=== PATIENT | female | born 1990 | race Hispanic/Latino ===

== ENCOUNTER 2018-04-23 01:55 | Emergency (ER) | payer OTHER ==
[2018-04-23] MEDS ORDERED: ONDANSETRON 4MG/2ML VIAL (J2405) As Ordered (02:12)
[2018-04-23] MEDS: ONDANSETRON 4MG/2ML VIAL (J2405) IV ×2 (02:15→04:40)
[2018-04-23 02:55] LABS: BASO # 0.1 10^3/uL (0.0-0.2); BASO % 0.7 % (0.0-1.0); EOS # 0.3 10^3/uL (0.0-0.50); EOS % 2.8 % (0.0-3.0); HEMATOCRIT 39.8 % (36.0-47.0); HEMOGLOBIN 13.4 g/dl (12.0-15.5); IMMATURE GRANULOCYTE % 0.4 % (0-3.0); LYMPH # 3.3 10^3/uL (1.5-6.5); LYMPH % 29.5 % (24.0-44.0); MEAN CORPUSCULAR HEMOGLOBIN 28.3 pg (27.0-33.0); MEAN CORPUSCULAR HGB CONC 33.7 g/dl (32.0-36.5); MONO # 1.1 10^3/uL (0.0-0.8); MONO % 9.5 % (0.0-5.0); NEUTROPHILS # 6.5 10^3/uL (1.8-7.7); NEUTROPHILS % 57.1 % (36.0-66.0); PLATELET COUNT, AUTOMATED 254 10^3/uL (150-450); RED BLOOD COUNT 4.74 10^6/uL (4.00-5.40); RED CELL DISTRIBUTION WIDTH 12.2 % (11.5-14.5); WHITE BLOOD COUNT 11.3 10^3/uL (4.0-10.0)
[2018-04-23 02:59] LABS: CONTROL LINE HCG INT CTR LINE PRESENT; HCG, SERUM QUALITATIVE NEGATIVE (NEGATIVE)
[2018-04-23 03:03] LABS: ANION GAP 16 MEQ/L (8-16); BLOOD UREA NITROGEN 7 MG/DL (7-18); CALCIUM LEVEL 8.9 MG/DL (8.5-10.1); CARBON DIOXIDE LEVEL 18 MEQ/L (21-32); CHLORIDE LEVEL 108 MEQ/L (98-107); CREATININE FOR GFR 0.85 MG/DL (0.55-1.30); ETHYL ALCOHOL (ETHANOL) 0.157 % (0.000-0.010); GLOMERULAR FILTRATION RATE > 60.0 (>60); GLUCOSE, FASTING 119 MG/DL (70-100); POTASSIUM SERUM 3.1 MEQ/L (3.5-5.1); SODIUM LEVEL 142 MEQ/L (136-145)
[2018-04-23] MEDS: NS 1,000 ML IV ×2 (03:13→07:40)
[2018-04-23] MEDS: METOCLOPRAMIDE INJ 10MG/2ML VIAL (J2765) IV ×2 (03:13→06:09)
[2018-04-23] MEDS ORDERED: ISOVUE-370 76% 100ML VIAL (Q9967) As Ordered (05:51)
[2018-04-23] MEDS: MORPHINE 4 MG/ML 1ML VIAL/SYRINGE (J2270) IV (06:10)
== END 2018-04-23 07:41 | disposition home or self-care (01) ==
LOC: M ED 01:55
DX: F10.229 Alcohol dependence with intoxication, unspecified (principal); Y90.0 Blood alcohol level of less than 20 mg/100 ml; Z87.19 Personal history of other diseases of the digestive system
CPT/HCPCS: J2270

== ENCOUNTER 2018-04-23 13:10 | Emergency (ER) | payer OTHER ==
[2018-04-23] MEDS: ONDANSETRON 4MG/2ML VIAL (J2405) IV (14:16)
[2018-04-23] MEDS: NS 1,000 ML IV (14:16)
[2018-04-23] MEDS: GI COCKTAIL 50ML BTL(HYOSCYAMINE/MAALOX/LIDOCAINE VISCOUS)(1:3:1) PO (14:17)
[2018-04-23 14:27] LABS: BASO # 0.1 10^3/uL (0.0-0.2); BASO % 0.3 % (0.0-1.0); EOS % 0.1 % (0.0-3.0); HEMATOCRIT 38.7 % (36.0-47.0); IMMATURE GRANULOCYTE % 0.5 % (0-3.0); LYMPH # 1.4 10^3/uL (1.5-6.5); MEAN CORPUSCULAR HEMOGLOBIN 28.3 pg (27.0-33.0); MEAN CORPUSCULAR HGB CONC 33.6 g/dl (32.0-36.5); MEAN CORPUSCULAR VOLUME 84.1 fl (80.0-96.0); MONO # 0.7 10^3/uL (0.0-0.8); MONO % 4.9 % (0.0-5.0); NEUTROPHILS # 12.7 10^3/uL (1.8-7.7); NEUTROPHILS % 85.2 % (36.0-66.0); PLATELET COUNT, AUTOMATED 212 10^3/uL (150-450); RED CELL DISTRIBUTION WIDTH 12.7 % (11.5-14.5)
[2018-04-23] MEDS: METOCLOPRAMIDE INJ 10MG/2ML VIAL (J2765) IV (14:56)
[2018-04-23] MEDS: KETOROLAC 30 MG/ML VIAL (J1885) IV (14:56)
[2018-04-23 15:02] LABS: ALBUMIN 3.9 GM/DL (3.2-5.2); ALBUMIN/GLOBULIN RATIO 0.98 (1.00-1.93); ALKALINE PHOSPHATASE 42 U/L (45-117); ALT/SGPT 16 U/L (12-78); ANION GAP 10 MEQ/L (8-16); AST/SGOT 14 U/L (7-37); BILIRUBIN,DIRECT 0.1 MG/DL (0.0-0.2); BILIRUBIN,TOTAL 0.8 MG/DL (0.2-1.0); BLOOD UREA NITROGEN 6 MG/DL (7-18); CALCIUM LEVEL 8.6 MG/DL (8.5-10.1); CARBON DIOXIDE LEVEL 23 MEQ/L (21-32); CHLORIDE LEVEL 108 MEQ/L (98-107); CREATININE FOR GFR 0.83 MG/DL (0.55-1.30); GLOMERULAR FILTRATION RATE > 60.0 (>60); GLUCOSE, FASTING 96 MG/DL (70-100); LIPASE 146 U/L (73-393); POTASSIUM SERUM 3.6 MEQ/L (3.5-5.1); SODIUM LEVEL 141 MEQ/L (136-145); TOTAL PROTEIN 7.9 GM/DL (6.4-8.2)
[2018-04-23 15:36] LABS: AMPHETAMINES LEVEL URINE NEGATIVE (NEGATIVE); BARBITURATES URINE NEGATIVE (NEGATIVE); BENZODIAZEPINES URINE NEGATIVE (NEGATIVE); CANNABINOIDS URINE POSITIVE (NEGATIVE); COCAINE METABOLITE URINE NEGATIVE (NEGATIVE); METHADONE URINE NEGATIVE (NEGATIVE); OPIATES URINE POSITIVE (NEGATIVE); PHENCYCLIDINE URINE NEGATIVE (NEGATIVE)
== END 2018-04-23 16:24 | disposition home or self-care (01) ==
LOC: M ED 13:10
DX: R11.2 Nausea with vomiting, unspecified (principal); K21.9 Gastro-esophageal reflux disease without esophagitis; F33.9 Major depressive disorder, recurrent, unspecified; Z87.19 Personal history of other diseases of the digestive system
CPT/HCPCS: J2405

== ENCOUNTER 2018-06-01 17:48 | Emergency (ER) | payer OTHER ==
[2018-06-01] MEDS: FLUCONAZOLE 100 MG TAB PO (18:57)
[2018-06-01 20:50] LABS: CHLAMYDIA DNA AMPLIFICATION NEGATIVE (NEGATIVE); GC DNA AMPLIFICATION NEGATIVE (NEGATIVE)
== END 2018-06-01 18:59 | disposition home or self-care (01) ==
LOC: M ED 17:48
DX: B37.3 Candidiasis of vulva and vagina (principal)
CPT/HCPCS: 87591